=== PATIENT | male | born 1995 | race Caucasian/White ===

== ENCOUNTER 2016-07-01 21:10 | Emergency (ER) | payer OTHER ==
[~2016-07-01] VITALS: Ht 175.3 cm; Wt 66.7 kg
[2016-07-01 21:18] VITALS: TEMP 36.6; Ht 175.3 cm; Wt 66.7 kg
--- NOTE | 2016-07-01 21:39 | DIAGNOSTIC IMAGING REPORT ---
RIGHT ANKLE 3 VIEWS CLINICAL HISTORY: Right ankle injury. FINDINGS: 3 views of the right ankle are obtained. No prior studies are available for comparison at the time of dictation. The skeletal structures are well mineralized. There is a minimally distracted spiral fracture through the distal fibula with approximately 2 mm of cortical offset of the fragments. No additional fracture is seen. The ankle mortise appears preserved. There is overlying soft tissue edema. A small joint effusion is noted. IMPRESSION: Minimally distracted spiral fracture of the distal fibula with overlying soft tissue edema. Electronically signed by: Lei Erazo M.D. 07/01/2016 9:38 PM Dictated Date/Time: 07/01/2016 9:36 PM
[2016-07-01] MEDS ORDERED: NORCO 5/325MG HOME PACK PO ONE (22:15)
[2016-07-01 22:38] VITALS: BP 127/68; PULSE 95; O2SAT 98
--- NOTE | 2016-07-03 03:02 | EMERGENCY ROOM VISIT NOTE ---
ED Visit Note First contact with patient: 21:57 CHIEF COMPLAINT: Right ankle pain. HISTORY OF PRESENT ILLNESS: Mr. Kohler is a 21-year old [place] male who ambulates on crutches into the ED accompanied by male friend of right ankle pain. He reports approximately 1 hours ago he playing soccer and rolled his right ankle. He has not exactly sure of the mechanism of injury. Immediately after the injury he reports he started having pain over the lateral aspect of the right ankle. He is currently complaining of constant achy pain over the lateral malleolus at rest and becomes sharp with movement and ambulation. He rates his discomfort 3/ 10 at rest and increases to 7/10 with activity. His pain is nonradiating. His pain worsens with weightbearing, ambulation, palpation, inversion and plantarflexion. Rest decreases his discomfort. He has not taken any medications for pain prior to arrival at the hospital. He denies any associated symptoms including hip pain, knee pain, lower leg pain, foot pain, foot weakness/numbness/tingling. REVIEW OF SYSTEMS: As noted above in History of Present Illness. PAST MEDICAL HISTORY: Patient denies. CURRENT MEDICATIONS: Patient denies. ALLERGIES TO MEDICATIONS: Patient denies. SOCIAL HISTORY: Patient is currently University student; he feels safe in his home environment; he denies tobacco use. PHYSICAL EXAM: Vital Signs: Date Time Temp Pulse Resp B/P Pulse Ox O2 Delivery O2 Flow Rate FiO2 07/01/16 22:38 95 18 127/68 98 07/01/16 21:18 36.6 116 18 150/74 95 Room Air General: 21 year old male in mild distress due to pain, afebrile and hemodynamically stable. Neurological: Awake, alert, oriented to person place and time. Answering questions appropriately and following commands. Skin: Warm dry and pink. No soft tissue injuries. Right/Left Lower Extremity: No gross misty deformities. No tenderness in the hip or knee. Tenderness over the X with X deformity, swelling, ecchymosis. Throughout the foot the skin is pink and warm with brisk capillary refill. Able to distinguish light sensations through all dermatomes of the foot. ED COURSE: Patient is assessed as noted above. Right Ankle X-Rays: Were read by myself and the radiologist and shows minimally distracted spiral fracture of the distal fibula with soft tissue swelling. Patient is given ice for pain, swelling and comfort; patient was offered pain medications and refused.. Patient is placed in a Ortho-Glass stirrup splint and was given and instructed on use nonweightbearing crutches. Patient is educated about his condition and instructed on his treatment plan; he verbalizes understanding and agreement with the our plan. CLINICAL IMPRESSION: Fracture of the distal right fibula. DISPOSITION: Patient is discharged to home in stable condition accompanied by by a male friend; prior to arrival at the hospital he subjectively reports she is feeling and rated the pain 4/10. PLAN: Comfort measures were discussed with the patient including rest, foot elevation , ice, splint and crutch use and a sliding pain scale of acetaminophen and Friend ; appropriate narcotic precautions were discussed with the patient. Patient should follow-up with an resource management specialist for definitive care and treatment. Patient was encouraged return the ED for worsening/uncontrolled pain, worsening/ uncontrolled swelling, foot weakness/numbness/tingling or any new/concerning symptoms.
== END 2016-07-01 22:39 | disposition home or self-care (01) ==
LOC: C.EDB 21:12 → C.EDD 22:39
DX: S82.444A Nondisplaced spiral fracture of shaft of right fibula, initial encounter for closed fracture (principal); Y93.66 Activity, soccer; Y92.322 Soccer field as the place of occurrence of the external cause

== ENCOUNTER 2017-03-10 03:39 | Emergency (ER) | payer OTHER ==
[~2017-03-10] VITALS: Ht 175.3 cm; Wt 67.8 kg
[2017-03-10 03:44] VITALS: TEMP 36.5; Ht 175.3 cm; Wt 67.8 kg
[2017-03-10] MEDS ORDERED: IBUPROFEN 600 MG TAB PO STA (04:12)
[2017-03-10 04:40] VITALS: BP 121/77; PULSE 72; O2SAT 99
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
== END 2017-03-10 04:42 | disposition home or self-care (01) ==
LOC: C.EDB 03:40
DX: T23.211A Burn of second degree of right thumb (nail), initial encounter (principal); X08.8XXA Exposure to other specified smoke, fire and flames, initial encounter